=== PATIENT | male | born 1980 | race Caucasian/White ===

== ENCOUNTER 2017-07-14 21:08 | Emergency (ER) | payer MEDICAID ==
[2017-07-15] MEDS ORDERED: KETOROLAC 60 MG INJ IM (01:18)
[2017-07-15] MEDS ORDERED: DIAZEPAM 5 MG TAB PO (01:30)
[2017-07-15] MEDS: CLINDAMYCIN 300 MG INJ IM (01:40)
[2017-07-15] MEDS: IBUPROFEN 600 MG TAB PO (01:57)
== END 2017-07-15 02:09 | disposition home or self-care (01) ==
LOC: FTE 21:08
DX: L02.415 Cutaneous abscess of right lower limb (principal)
CPT/HCPCS: 96372; 99284-25